=== PATIENT | male | born 1990 | race Caucasian/White ===

== ENCOUNTER 2020-12-21 19:36 | Emergency (ER) | payer OTHER ==
[~2020-12-21] VITALS: Ht 188 cm; Wt 95.5 kg
[~2020-12-21 19:36] MED LIST: AMOXICILLIN 8751 TAB PO; PREDNISONE20 MG PO
[2020-12-21 19:57] VITALS: TEMP 97.8
[2020-12-21 20:13] LABS: COLLECTION METHOD CLEAN CATCH
[2020-12-21 20:26] LABS: AMORPHOUS CRYSTAL Present /uL; MUCOUS Present /lpf; PH 7 (5-8); SQUAMOUS EPITHELIAL None Seen /hpf; URINE APPEARANCE Cloudy; URINE BACTERIA Rare /hpf; URINE BILIRUBIN Negative (NEGATIVE); URINE BLOOD Negative (NEGATIVE); URINE COLOR Yellow; URINE GLUCOSE Negative (NEGATIVE); URINE KETONE Negative (NEGATIVE); URINE LEUKOCYTE ESTERASE Negative (NEGATIVE); URINE NITRATE Negative (NEGATIVE); URINE PROTEIN(semi-quant) Negative (NEGATIVE); URINE RBC 0-2 /hpf; URINE UROBILINOGEN >=4.0 mg/dL (NEGATIVE)
[2020-12-21 20:44] LABS: TRICYCLIC ANTIDEPRESS URINE NEGATIVE
[2020-12-21 20:44] LABS: BASO % 0.5 % (0.0-2.0); EOS # 0.2 (0.0-0.7); GRAN # 4.3 (1.4-6.5); HEMATOCRIT 42.8 % (42.0-52.0); HEMOGLOBIN 14.3 g/dl (13.5-18.0); LYMPH # 1.4 (1.2-3.4); LYMPH % 20.9 % (20.0-51.0); MEAN CELL VOLUME 90 fl (80.0-100.0); MEAN CORPUSCULAR HEMOGLOBIN 30 pg (27.0-31.0); MEAN CORPUSCULAR HGB CONC 33 g/dl (33.0-37.0); MEAN PLATELET VOLUME 8.4 fl (7.4-10.4); MONO # 0.6 (0.1-0.6); MONO % 9.4 % (1.7-9.3); PLATELET COUNT 276 K/mm3 (130-400); RED BLOOD COUNT 4.77 M/mm3 (4.20-5.60)
[2020-12-21 21:01] LABS: ALANINE AMINOTRANSFERASE 25 U/L (4-49); ALBUMIN 3.9 gm/dL (3.5-5.0); ALKALINE PHOSPHATASE 36 U/L (50-136); ANION GAP 6 mmol/L (7-16); AST,SGOT 27 U/L (15-37); BILIRUBIN,TOTAL 0.4 mg/dL (0.0-1.0); BLOOD UREA NITROGEN 15 mg/dL (9-20); CALCIUM 9.2 mg/dL (8.4-10.2); CARBON DIOXIDE 26 mmol/L (22-30); CHLORIDE 108 mmol/L (98-107); CREATININE, serum 0.87 (0.66-1.25); GLUCOSE 122 mg/dL (74-106); SODIUM 140 mmol/L (137-145); TOTAL PROTEIN 6.4 gm/dL (6.4-8.2)
[2020-12-21 21:12] LABS: ACETAMINOPHEN < 10 ug/mL (10-30); ALCOHOL(ethanol),MEDICAL < 10 mg/dL; SALICYLATE < 1.0 mg/dL
[2020-12-22 00:40] VITALS: BP 138/70; PULSE 78
== END 2020-12-22 00:40 | disposition home or self-care (01) ==
LOC: COL.ER 19:36
PROVIDERS: Nurse Practitioner; Personal Emergency Response Attendant
DX: F32.9 Major depressive disorder, single episode, unspecified (principal)